=== PATIENT | female | born 1945 | race Caucasian/White ===

== ENCOUNTER 2020-08-17 17:05 | Emergency (ER) | payer MEDICARE ==
--- NOTE | 2020-08-17 17:13 | ER Document Report ---
ED Medical Screen (RME) - General Chief Complaint: S/S of Possible Stroke Stated Complaint: POSSBILE STROKE Time Seen by Provider: 08/17/20 17:09 - HPI Notes: 08/17/20 17:10 I was called out to the main waiting area to assess a 75-year-old femalefor concerns of stroke-like symptoms that started at 4 PM today. 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 She was last seen as normal at 4 PM. Denies any blurred vision double vision or loss of vision. She did take 650 mg of aspirin today when she started with her symptoms. No history of strokes. Denies any chest pain, shortness of breath, nausea, vomiting, diarrhea. Patient reports she still having the symptoms. No history of diabetes. Charge nurse was notified at 1710 of stroke patient. Orders were placed. Patient will be brought to CT scan immediately I have greeted and performed a rapid initial assessment of this patient. A comprehensive ED assessment and evaluation of the patient, analysis of test results and completion of the medical decision making process will be conducted by additional ED providers. PHYSICAL EXAMINATION: GENERAL: Well-appearing, well-nourished and in no acute distress. HEAD: Atraumatic, normocephalic. EYES: Pupils equal round extraocular movements intact, conjunctiva are normal. NECK: Normal range of motion CV: s1, s2 regular LUNGS: No respiratory distress Musculoskeletal: Normal range of motion NEUROLOGICAL: Normal speech, normal gait. PERRLA, EOMI. Full motor and sensory function throughout. 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 Tongue midline. No pronator drift. Neck with APROM. Raises eyebrows. Strength is 5 out of 5 in bilateral upper and lower extremities equally.Speaks in full sentences. No weakness on one side. Romberg gait steady able to walk straight line. SKIN: Warm, Dry, normal turgor, no rashes or lesions noted. The patient was evaluated during a global COVID-19 pandemic and that diagnosis was suspected/considered upon their initial presentation. Their evaluation, treatment and testing was consistent with current guidelines for patients who present with complaints or symptoms and may be related to COVID-19.
--- NOTE | 2020-08-17 17:29 | RADIOLOGY REPORT (SQ) ---
EXAM DESCRIPTION: CT HEAD WITHOUT IMAGES COMPLETED DATE/TIME: 08/17/2020 5:18 pm REASON FOR STUDY: R sided weakness, slurring words x1 h COMPARISON: None. TECHNIQUE: Axial images acquired through the brain without intravenous contrast. Images reviewed wi th bone, brain and subdural windows. Additional sagittal and coronal reconstructions were generated. Images stored on PACS. All CT scanners at this facility use dose modulation, iterative reconstruction, and/or weight based d osing when appropriate to reduce radiation dose to as low as reasonably achievable (ALARA). [facility]: Dose Right [facility]: CareDose [facility]: Dose Right [facility]: Teradose 4D [facility]: [employer] RADIATION DOSE: CT Rad equipment meets quality standard of care and radiation dose reduction techniq ues were employed. CTDIvol: 53.2 mGy. DLP: 991 mGy-cm. mGy. LIMITATIONS: None. FINDINGS: VENTRICLES: Normal size and contour. CEREBRUM: No masses. No hemorrhage. No midline shift. No evidence for acute infarction. Normal gra y/white matter differentiation. No areas of low density in the white matter. CEREBELLUM: No masses. No hemorrhage. No alteration of density. No evidence for acute infarction. EXTRAAXIAL SPACES: No fluid collections. No masses. ORBITS AND GLOBE: No intra- or extraconal masses. Normal contour of globe without masses. CALVARIUM: No fracture. PARANASAL SINUSES: No fluid or mucosal thickening. SOFT TISSUES: No mass or hematoma. OTHER: No other significant finding. IMPRESSION: NORMAL BRAIN CT WITHOUT CONTRAST. EVIDENCE OF ACUTE STROKE: NO. COMMENT: Quality ID # [id number]: Final reports with documentation of one or more dose reduction techniques (e.g., Automated exposure control, adjustment of the mA and/or kV according to patient size, use of iterative reconstruction technique) TECHNICAL DOCUMENTATION: JOB ID: [id number] 2010 [employer]- All Rights Reserved Reading location - IP/workstation name: [email or web address]
--- NOTE | 2020-08-17 17:35 | RADIOLOGY REPORT (SQ) ---
EXAM DESCRIPTION: CHEST SINGLE VIEW IMAGES COMPLETED DATE/TIME: 08/17/2020 5:21 pm REASON FOR STUDY: R sided weakness, slurring words x1 h COMPARISON: None. EXAM PARAMETERS: NUMBER OF VIEWS: One view. TECHNIQUE: Single frontal radiographic view of the chest acquired. RADIATION DOSE: NA LIMITATIONS: None. FINDINGS: LUNGS AND PLEURA: Focal hazy opacification of the left lung base with likely tiny left-анна ed pleural effusion. No pneumothorax. MEDIASTINUM AND HILAR STRUCTURES: No masses. Contour normal. HEART AND VASCULAR STRUCTURES: Heart normal in size. Normal vasculature. BONES: No acute findings. HARDWARE: None in the chest. OTHER: No other significant finding. IMPRESSION: In the appropriate clinical setting, findings may represent a developing left lower lobe or lingular airspace process. TECHNICAL DOCUMENTATION: JOB ID: [id number] 2010 [employer]- All Rights Reserved Reading location - IP/workstation name: [email or web address]
--- NOTE | 2020-08-17 17:39 | ER Document Report ---
ED General - General Chief Complaint: S/S of Possible Stroke Stated Complaint: POSSBILE STROKE Time Seen by Provider: 08/17/20 17:09 Mode of Arrival: Wheelchair Information source: Patient Notes: ED Medical Screen ([facility]) - General Chief Complaint: S/S of Possible Stroke Stated Complaint: POSSBILE STROKE Time Seen by Provider: 08/17/20 17:09 - [facility] Notes: 08/17/20 17:10 I was called out to the main waiting area to assess a 75-year-old femalefor concerns of stroke-like symptoms that started at 4 PM today. 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 She was last seen as normal at 4 PM. Denies any blurred vision double vision or loss of vision. She did take 650 mg of aspirin today when she started with her symptoms. No history of strokes. Denies any chest pain, shortness of breath, nausea, vomiting, diarrhea. Patient reports she still having the symptoms. No history of diabetes. Charge nurse was notified at 1710 of stroke patient. Orders were placed. Patient will be brought to CT scan immediately I have greeted and performed a rapid initial assessment of this patient. A comprehensive ED assessment and evaluation of the patient, analysis of test results and completion of the medical decision making process will be conducted by additional ED providers. PHYSICAL EXAMINATION: GENERAL: Well-appearing, well-nourished and in no acute distress. HEAD: Atraumatic, normocephalic. EYES: Pupils equal round extraocular movements intact, conjunctiva are normal. NECK: Normal range of motion CV: s1, s2 regular LUNGS: No respiratory distress Musculoskeletal: Normal range of motion NEUROLOGICAL: Normal speech, normal gait. PERRLA, EOMI. Full motor and sensory function throughout. 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 Tongue midline. No pronator drift. Neck with APROM. Raises eyebrows. Strength is 5 out of 5 in bilateral upper and lower extremities equally.Speaks in full sentences. No wea kness on one side. Romberg gait steady able to walk straight line. SKIN: Warm, Dry, normal turgor, no rashes or lesions noted. MY NOTES 75-year-old female arrives by POV after experiencing complete neglect of her right upper arm and stumbling with her right lower foot and leg. She also had slurred speech and facial droop on the right. Patient took 615 aspirin when her symptoms began. Her symptoms had some resolution in route to the hospital. By time of my exam at 1715 she had full range of motion of her right arm and right leg with heaviness continuing in her right arm. She denies any cephalgia nuchal rigidity herpetic lesions recently. She has a past medical history of left lymph node biopsy 2 years ago with left nephrectomy because of cancer 1 year ago and also a right breast biopsy that was benign. She denies any blurry vision or double vision or fever chills or Covid or influenza exposure. She has full pulses to all extremities on initial exam. She has good wet end helper to all extremities. Patient reports she is from [place] and had her surgery done at [place] TRAVEL OUTSIDE OF THE [place] IN LAST 30 DAYS: No - HPI Onset: Just prior to arrival Onset/Duration: Sudden, Better Quality of pain: Dull, Pressure. denies: Burning, Cramping, Fullness, Sharp, Stabbing, Throbbing Severity: Moderate Pain Level: 2 Associated symptoms: Weakness. denies: Allergy/hay fever, Body/muscle aches, Chills, Drooling, Earache, Fever, Headache, Hoarseness, Hurts to breath, Nausea, Vomiting, Rhinnorhea Exacerbated by: Movement Relieved by: Denies Similar symptoms previously: No Recently seen / treated by doctor: No - Related Data Allergies/Adverse Reactions: celecoxib [From Celebrex] Allergy (Unknown, Verified 08/17/20 17:26) Home Medications: wellbutrin, trazadone, hxtz, alprazolam Past Medical History - General Information source: Patient - Social History Smoking Status: Unknown if Ever Smoked Cigarette use (# per day): No Chew tobacco use (# tins/day): No Smoking Education Provided: No Frequency of alcohol use: Occasional - Vodka and wine on a weekly basis Drug Abuse: None Lives with: Family Family History: Reviewed & Not Pertinent Patient has suicidal ideation: No Patient has homicidal ideation: No Physical Exam - Vital signs Vitals: Resp BP Pulse Ox 24 H 158/89 H 99 08/17/20 17:31 08/17/20 17:31 08/17/20 17:31 Interpretation: Tachypneic - General General appearance: Appears well, Alert - HEENT Head: Normocephalic, Atraumatic Eyes: Normal Pupils: PERRL - Respiratory Respiratory status: No respiratory distress Chest status: Nontender Breath sounds: Normal Chest palpation: Normal - Cardiovascular Rhythm: Regular Heart sounds: Normal auscultation Murmur: No - Abdominal Inspection: Normal Distension: No distension Bowel sounds: Normal Tenderness: Nontender Organomegaly: No organomegaly - Rectal Hemorrhoids: Other - Deferred - Genitourinary Bimanuel exam: Other - Deferred - Back Back: Normal, Nontender - Extremities General upper extremity: Normal inspection, Nontender, Normal color, Normal ROM, Normal temperature General lower extremity: Normal inspection, Nontender, Normal color, Normal ROM, Normal temperature, Normal weight bearing. No: Connor's sign - Neurological Neuro grossly intact: Yes Cognition: Normal Orientation: AAOx4 Ketty Coma Scale Eye Opening: Spontaneous Ketty Coma Scale Verbal: Oriented Orient Coma Scale Motor: Obeys Commands Ketty Coma Scale Total: 15 Speech: Normal Motor strength normal: LUE, RUE, LLE, RLE Sensory: Normal - Psychological Associated symptoms: Normal affect, Normal mood - Skin Skin Temperature: Warm Skin Moisture: Dry Skin Color: Normal Course - Vital Signs Vital signs: Temp Pulse Resp BP Pulse Ox 88 16 158/89 H 99 08/17/20 17:32 08/17/20 17:47 08/17/20 17:47 08/17/20 17:47 - Laboratory Results Result Diagrams: 08/17/20 17:25 08/17/20 17:25 Laboratory Results Interpreted: 08/17/20 17:25 Sodium 136.5 L BUN 24 H Creatinine 1.32 H Est GFR ( Amer) 47 L Est GFR (MDRD) Non-Af 39 L Critical Laboratory Results Reviewed: Yes Attending or Supervising Physician who Reviewed Labs: JOY IYER JR - Radiology Results Critical Radiology Results Reviewed: Yes Attending or Supervising Physician who Reviewed Radiology: JOY IYER JR - EKG Interpretation by Or EKG shows normal: Sinus rhythm Rate: Normal Rhythm: NSR - 83 bpm sinus rhythm with no ST elevation and no ST depression no T wave elevation no T wave depression and axis within normal limits. Critical Care Note - Critical Care Note Comments: This case was discussed with Ericka at the transfer center and also with CARMEN Jorge neurology collections attorney at 1750 and we are advised to do CTA as well as MRI and call back with results. I also spoke with patient and family member about her left lower lobe infiltrate and increased respiratory rate. We will obtained blood cultures and give her Rocephin and Zithromax and Covid test. Patient refuses to be admitted to hospital. I turned pt over to Js at [address] /MRI results Discharge - Discharge Clinical Impression: CVA (cerebral vascular accident) Qualifiers: CVA mechanism: unspecified Qualified Code(s): I63.9 - Cerebral infarction, unsp ecified Pneumonia Qualifiers: Pneumonia type: due to unspecified organism Laterality: left Lung location: lower lobe of lung Qualified Code(s): J18.9 - Pneumonia, unspecified organism Condition: Stable Disposition: HOME, SELF-CARE Additional Instructions: Follow-up with personal doctor this week; return to ER if symptoms persist or worsen. Take medicines as directed. Take aspirin on a daily basis 81 mg baby aspirin. Take antibiotics as directed. May want to get rechecked for Covid in 1 week. You have chosen to go home rather than be admitted to hospital. Make sure if your symptoms worsen contact a medical professional whether ER or your personal doctor. Prescriptions: Dexamethasone [Decadron 4 Mg Tablet] 4 mg PO DAILY #5 tablet Azithromycin [Zithromax 250 mg Tablet] 250 mg PO ASDIR PRN #6 tablet PRN Reason:
[2020-08-17 17:40] LABS: PROTHROMBIN TIME 13.4 SEC (11.4-15.4)
[2020-08-17 17:52] LABS: ABSOLUTE BASOPHILS # (AUTO) 0.1 10^3/uL (0.0-0.2); ABSOLUTE EOSINOPHILS # (AUTO) 0.2 10^3/uL (0.0-0.6); ABSOLUTE MONOCYTES (AUTO) 0.8 10^3/uL (0.1-1.4); ABSOLUTE NEUT (AUTO) 5.7 10^3/uL (1.7-8.2); BASOPHILS % (AUTO) 0.9 % (0-2); EOSINOPHILS % (AUTO) 2.3 % (0-6); HEMATOCRIT 39.4 % (36.0-47.0); HEMOGLOBIN 13.7 g/dL (12.0-15.5); MEAN CORPUSCULAR HEMOGLOBIN 29.1 pg (27.0-33.4); MEAN CORPUSCULAR HGB CONC 34.7 g/dL (32.0-36.0); MEAN CORPUSCULAR VOLUME 84 fl (80-97); MONOCYTES % (AUTO) 8.6 % (3-13); PLATELET COUNT 267 10^3/uL (150-450); RED CELL DISTRIBUTION WIDTH 13.8 % (11.5-14.0); SEGMENTED NEUTROPHILS % (AUTO) 65.2 % (42-78); TOTAL CELLS COUNTED % (AUTO) 100 %; WHITE BLOOD COUNT 8.8 10^3/uL (4.0-10.5)
[2020-08-17 18:16] LABS: ALBUMIN 4.2 g/dL (3.5-5.0); ALKALINE PHOSPHATASE 53 U/L (38-126); ANION GAP 9 (5-19); ASPARTATE AMINO TRANSFERASE 26 U/L (14-36); BILIRUBIN,DIRECT 0.2 mg/dL (0.0-0.4); BILIRUBIN,TOTAL 0.5 mg/dL (0.2-1.3); BLOOD UREA NITROGEN 24 mg/dL (7-20); CALCIUM 9.9 mg/dL (8.4-10.2); CARBON DIOXIDE 28 mmol/L (22-30); CHLORIDE 100 mmol/L (98-107); GLUCOSE 98 mg/dL (75-110); TOTAL PROTEIN 7.1 g/dL (6.3-8.2)
[2020-08-17] MEDS ORDERED: CEFTRIAXONE INJ 1000 MG VIAL IV ONE ×2 (18:54→22:30)
[2020-08-17] MEDS ORDERED: AZITHROMYCIN INJ 500 MG VIAL IV ONE ×2 (18:55→22:30)
[2020-08-17] MEDS ORDERED: DEXAMETHASONE SOD PHOS INJ 10 MG/1 ML VIAL IV ONE ×2 (18:55→22:30)
--- NOTE | 2020-08-17 20:16 | RADIOLOGY REPORT (SQ) ---
EXAM DESCRIPTION: MRI BRAIN WITHOUT INTRAVENOUS CONTRAST CLINICAL HISTORY: Difficulty gripping and holding, numbness on the right side. COMPARISON: CT head performed the same day. TECHNIQUE: MRI of the brain was performed without intravenous contrast, in a multiplanar/multisequence format. FINDINGS: There is moderate cerebral volume loss. There is no intracranial hemorrhage, midline shift, mass effect or acute focal infarct. There is a good pan/white matter differentiation. Evaluation of intracranial vasculature is technically limited given noncontrast technique. There is no visualization of a demyelination process. The ventricular system is normal. Limited evaluation of the pituitary fossa, bilateral cerebellopontine angles and bilateral IAC region appear unremarkable. IMPRESSION: Negative for acute findings on the noncontrast MRI of the brain.
--- NOTE | 2020-08-17 21:36 | EKG REPORT ---
SEVERITY:- NORMAL ECG - SINUS RHYTHM : Confirmed by: Arslan Franklin MD 17-Aug-2020 21:35:51
--- NOTE | 2020-08-17 21:53 | RADIOLOGY REPORT (SQ) ---
EXAM DESCRIPTION: CT NECK ANGIOGRAPHY WITHOUT THEN WITH IV CONTRAST COMPLETED DATE/TME: 08/17/2020 21:03 CLINICAL HISTORY: 75 years, Female, cva COMPARISON: None. TECHNIQUE: 70 mL of Omnipaque 350. Sagittal coronal reconstruction. Images stored on PACS. All CT scanners at this facility use dose modulation, iterative reconstruction, and/or weight based dosing when appropriate to reduce radiation dose to as low as reasonably achievable (ALARA). FINDINGS: Upper lung colon in the upper mediastinum are unremarkable. Origin of the left subclavian left common carotid and right brachiocephalic arteries are unremarkable. Patent bilateral vertebral arteries left larger than the right. Bilateral common carotid arteries are unremarkable. Minimal atherosclerotic disease in the left carotid bulb. No evidence for stenosis at the origin of both internal carotid arteries. Incidental 6 mm right thyroid and 5 mm left thyroid nodule.. IMPRESSION: 1. No suspicious arterial abnormality in the neck. 2. Tiny thyroid nodule in each thyroid lobe. No further evaluation is necessary.
--- NOTE | 2020-08-18 00:11 | RADIOLOGY REPORT (SQ) ---
CT angiogram head with contrast on 08/17/2020 at 8:38 PM CLINICAL INDICATION: CVA, right-sided numbness TECHNIQUE: Multiple axial images are obtained throughout the head following the administration of IV contrast. Computer-generated 3-D reconstructions/MIPS were performed. This exam was performed according to our departmental dose-optimization program, which includes automated exposure control, adjustment of the mA and/or kV according to patient size and/or use of iterative reconstruction technique. Total DLP is 457.55 mGy*cm. COMPARISON: CT and MRI of the head from earlier the same day FINDINGS: There is a normal appearance of the [place] and intracranial vasculature. There is no aneurysm, vascular malformation or significant stenosis. The dural venous sinuses are patent with no evidence of dural venous sinus thrombosis. IMPRESSION: Unremarkable CT angiogram of the head.
[2020-08-18 01:20] VITALS: BP 145/72
== END 2020-08-18 01:02 | disposition home or self-care (01) ==
LOC: EDBD → ER 17:05
DX: I63.9 Cerebral infarction, unspecified (principal); R20.0 Anesthesia of skin; R47.81 Slurred speech; R29.810 Facial weakness; J18.9 Pneumonia, unspecified organism; E04.2 Nontoxic multinodular goiter; Z90.5 Acquired absence of kidney; Z85.528 Personal history of other malignant neoplasm of kidney; Z79.899 Other long term (current) drug therapy; Z20.828 Contact with and (suspected) exposure to other viral communicable diseases
CPT/HCPCS: 93005; 99285; 96375; 96365; 96367; 36415; 87040; 82962; 85025; 85610; 0202U ×23; 80053; 70551; 71045; 70450; 70496; 70498; 93010; J0696; J0456; J1100